=== PATIENT | female | born 1950 | race Caucasian/White ===

== ENCOUNTER 2017-02-03 18:40 | Inpatient (IN) | payer OTHER ==
[~2017-02-03] VITALS: Ht 165.1 cm; Wt 49.4 kg
[~2017-02-03 18:40] MED LIST: ADV250/50 INH; LEVAQUIN500 MG PO; LISINOPRIL10 MG PO; MEDDP PO; MONTELUKAST SOD10 M1 PO; PROAIR HFA0.09 MG/A1 INH
--- NOTE | 2017-02-03 20:01 | NUR ---
PATIENT SEEN WITH COMPLAINT OF CHRONIC SOB, SINCE WINTER STARTED, WORSE LAST MONTH. HISTORY OF ASTHMA. PATIENT WENT TO URGENT CARE AND WAS SENT HERE.
[2017-02-03 20:30] LABS: BASOPHIL % 0.4 % (0-2)
[2017-02-03 20:32] LABS: PLATELET COUNT 401 x10^3mcL (130-400)
[2017-02-03 20:40] LABS: CALCIUM 9.5 mg/dL (8.5-10.1); CARBON DIOXIDE 26.3 mmol/L (21-32); CHLORIDE SERUM 98 mmol/L (98-107); CREATININE SERUM 0.6 mg/dL (0.6-1.0); GFR1 > 60 mL/min; GLUCOSE SERUM 138 mg/dL (74-106); POTASSIUM SERUM 3.6 mmol/L (3.5-5.1); SODIUM SERUM 135 mmol/L (136-145)
[2017-02-03 20:44] LABS: ALBUMIN 3.9 g/dL (3.4-5.0); ALKALINE PHOSPHATASE 84 U/L (46-116); ALT/SGPT 20 U/L (14-59); AST/SGOT 16 U/L (15-37); BILIRUBIN TOTAL 0.5 mg/dL (0.20-1.00); TOTAL PROTEIN, SERUM 7.4 g/dL (6.4-8.2)
--- NOTE | 2017-02-03 23:58 | NUR ---
REPORT WAS GIVEN TO PAULIE. PATIENT TRANSPORTED TO ROOM 253B.
[2017-02-04] VITALS (7 sets, daily range): BP systolic 90–151; BP diastolic 49–90
[2017-02-04 00:11] LABS: CHOLESTEROL/HDL RATIO 3.2
[2017-02-04 00:15] LABS: FREE T4 1.33 ng/dL (0.76-1.46); FREE THYROXINE INDEX 3.9 ug/dL (1.4-4.5); T4(THYROXINE) 10.6 ug/dL (4.7-13.3)
[2017-02-04 00:22] LABS: UA SPECIFIC GRAVITY 1.025 (1.005-1.035); microscopic required? YES; urine erythrocyte TRACE (NEGATIVE)
--- NOTE | 2017-02-04 01:31 | NUR ---
RECEIVED PT FROM ED VIA [facility]. ORIENTED PT TO ROOM AND SURROUNDINGS. IV NOTED TO RIGHT HAND, PATENT AND INTACT. TELE 40 PLACED ON PT READING STA. INSTRUCTED PT ON THE USE OF CALL LIGHT FOR ASSISTANCE. ENDORSED PT TO PRIMARY NURSE PAULIE
--- NOTE | 2017-02-04 01:35 | NUR ---
RECEIVED PT FROM BONIFACIOU RN. PT A/OX4. DENIES CHEST PAIN/PRESSURE. DENIES SOB ON 2LNC. O2SAT 94%. IV PATENT AND INFUSING MAG-RIDER WITH NO S/S OF INFILTRATION. PT ORIENTED TO ROOM AND SURROUNDINGS. CALL LIGHT WITHIN REACH, BED IN LOW POSITION. WILL CONTINUE TO MONITOR.
--- NOTE | 2017-02-04 05:28 | NUR ---
O2 SAT 82%. PT REFUSING O2. RT AT BEDSIDE FOR BREATHING TREATMENT. DR MOLINA NOTIFIED, REPORTED TO BEDSIDE FOR ASSESSMENT. WILL CONTINUE TO MONITOR.
[2017-02-04 06:37] LABS: BASOPHIL % 0.4 % (0-2); PLATELET COUNT 388 x10^3mcL (130-400); RED CELL DISTRIBUTION WIDTH 14.1 % (11.5-14.5)
[2017-02-04 06:55] LABS: CALCIUM 9.7 mg/dL (8.5-10.1); CARBON DIOXIDE 26.3 mmol/L (21-32); CHLORIDE SERUM 99 mmol/L (98-107); CREATININE SERUM 0.6 mg/dL (0.6-1.0); GFR1 > 60 mL/min; GLUCOSE SERUM 144 mg/dL (74-106); MAGNESIUM 2.5 mg/dL (1.8-2.4); PHOSPHOROUS 4.2 mg/dL (2.5-4.9); POTASSIUM SERUM 4.5 mmol/L (3.5-5.1); SODIUM SERUM 137 mmol/L (136-145)
--- NOTE | 2017-02-04 07:32 | NUR ---
RECEIVED PT LAYING IN BED. NO APPARENT SIGNS OF DISTRESS. INTRODUCED SELF. IV SITE PATENT AND INFUSING WELL. INFORMATION BOARD UPDATED. PT PLEASANT WHEN ENGAGED. CALL LIGHT WITHIN REACH. ENCOURAGED TO CALL FOR ASSISTANCE WHEN NEEDED. WILL CONTINUE TO MONITOR
--- NOTE | 2017-02-04 11:58 | NUR ---
PT SITTING AT SIDE OF BED. DENIES PAIN AT THIS TIME. NO APPARENT SIGNS OF ACUTE DISTRESS NOTED. CALL LIGHT WITHIN REACH. ENCOURAGED TO CALL FOR ASSISTANCE WHEN NEEDED. ANASTASIIA CONTINUE TO MONITOR
--- NOTE | 2017-02-04 12:00 | NUR ---
PT STATES THAT SHE DOES NOT WANT THE IV HOOKED UP AND RUNNING. STATES SHE PREFERS TO DRINK WATER. SHE IS CURRENTLY SALINE LOCKED. WILL INFORM DOCTOR
--- NOTE | 2017-02-04 15:47 | NUR ---
PT IS CURRENTLY SITTING AT THE EDGE HER BED CALM AND QUIETLY, BUT APPEARS TO BE RESPONDING TO UNSEEN STIMULI, WHISPERING UNDERNEATH HER BREATH STARING OFF INTO SPACE. NO APPARENT SIGNS OF ACUTE DISTRESS NOTED. IV LINE REMOVED AND IS SALINE LOCKED UPON PTS REQUEST. STATES THAT SHE USES THE RESTROOM AND DOESNT LIEK TAKING THE POLE WITH HER. CALL LIGHT WITHIN REACH. WILL CONTINUE TO MONITOR
--- NOTE | 2017-02-04 16:01 | NUR ---
Initial Nutrition Assessment Dx: Dyspnea 2/2 Acute asthma vs. COPD exacerbation PMHx: Asthma, Chronic Bronchitis, COPD, Paranoid schizophrenia, Medical Non-compliance PSHx: None Labs: BG 144H, Alb 3.9, LDL 122H, Mg 2.5H, A1C 6.2 Meds: oscal w/ vitamin D, colace, NS, zofran, morphine Current Diet Order: Cardiac (02/04) PO Intakes: 100% (02/04) Ht: 165.1cm,65". Wt: 109lbs, 49.4kg. BMI: 18.1 kg/m2 (Underweight-At risk for malnutrition) IBW: 125lb,56.8 kg. %IBW: 87% (Moderate Deficit). UBW: 113lbs x 2 weeks ago Age: 66 Y/O F Food Allergies: NKFA Skin: intact. Jose:19 Edema: None noted GI:bowel sounds active, abd soft and flat . Last BM:1 formed (02/03) Pt admitted w/Dyspnea 2/2 Acute asthma vs. COPD exacerbation, seen at bedside w/ no family present, pt reports consuming 100% d/t feeling hungry, denies GI issues, states loosing 4 lbs in the past 2 weeks d/t not eating very well at home, was feeling sick and only able to eat 1-2 meals per day, denies education on COPD MNT and requested education at bedside, the RD reviewed w/ pt on COPD MNT and tips to prevent wt loss at bedside, educational handout and nutrition health kit given w/ Ensure coupons, the pt was highly receptive and engaged. Problem with: N: None. V: None. D: none. C: None. Problem with: Chewing: None. Swallowing: None. Current Appetite: Good Recent Weight Change: 4lbs. % Weight Change: 3.5 (Significant) Vitamin/Supplement Use: none Diet at Home: for the past 2 weeks the pt only consumed 1-2 meals per day d/t feeling sick Physical Activity: none Education: none Estimated Nutritional Needs Based on IBW 125 lb, 56.8kg Energy: 1053-3558 kcal/day (30-35 kcal/kg for Geriatric Repletion, COPD) Protein: 57-68 g/day (1-1.2 g/kg for Geriatric Repletion, COPD) Fluid: 8866-2968 ml/day (30-35 ml/kg for Geriatric Repletion, COPD) or per MD Nutrition Diagnosis 1. Underweight related to increased protein and energy needs 2/2 COPD as evidenced by pt w/ BMI:18.1, %IBW: 87, 4lbs wt loss in 2 weeks, % Weight Change: 3.5, and poor PO intake PATHOLOGY TECH Intervention 1. Liberalize diet to Regular w/ Boost Plus daily (360kcals, 14g protein). Make food preferences known. 2. Theragran daily 3. Daily weights to assess trends Monitor/Evaluate Goal: PO intakes to meet at least 75% of estimated needs Monitor: PO intakes/tolerance, labs, skin integrity, GI function, wt F/U in 7 days as LOW risk (02/11)
--- NOTE | 2017-02-04 16:13 | NUR ---
1. Liberalize diet to Regular w/ Boost Plus daily (360kcals, 14g protein). Make food preferences known. 2. Theragran daily 3. Daily weights to assess trends
--- NOTE | 2017-02-04 17:47 | NUR ---
REINSERTED NEW IV ACCESS ON THE LEFT HAND 22G. PREVIOUS ACCESS REMOVED. PT TOLERATED WELL. INFUSING AT 60ML/HR NS. CALL LIGHT WITHIN REACH WILL CONTINUE TO MONITOR
--- NOTE | 2017-02-04 19:17 | NUR ---
RECEIVED PT FROM PREVIOUS SHIFT. PT A/OX4. DENIES SOB ON RA. DENIES CHEST PAIN/PRESSURE. RESPONDING TO INTERNAL STIMULI. AT BEDSIDE VISITING. IV PATENT. CALL LIGHT WITHIN REACH, BED IN LOW POSITION. WILL CONTINUE TO MONITOR.
--- NOTE | 2017-02-04 21:32 | NUR ---
BP 90/46, MAP 60. DR MOLINA AWARE. 1L BOLUS ORDER RECEIVED. WILL CARRY OUT ALL ORDERS AT THIS TIME AND CONTINUE TO MONITOR.
--- NOTE | 2017-02-04 23:15 | NUR ---
BP AFTER BOLUS 98/60. DR MOLINA MADE AWARE. WILL CONTINUE TO MONITOR.
--- NOTE | 2017-02-05 02:01 | NUR ---
PT RESTING AT THIS TIME IN NO ACUTE DISTRESS. RR EVEN AND UNLABORED. IV PATENT AND INFUSING WELL WITH NO S/S OF INFILTRATION. CALL LIGHT WITHIN REACH, BED IN LOW POSITION. WILL CONTINUE TO MONITOR.
[2017-02-05 05:34] VITALS: BP 82/48
[2017-02-05 06:24] LABS: CALCIUM 8.9 mg/dL (8.5-10.1); CARBON DIOXIDE 27.6 mmol/L (21-32); CHLORIDE SERUM 102 mmol/L (98-107); CREATININE SERUM 0.6 mg/dL (0.6-1.0); GFR1 > 60 mL/min; GLUCOSE SERUM 114 mg/dL (74-106); MAGNESIUM 2.2 mg/dL (1.8-2.4); POTASSIUM SERUM 4.5 mmol/L (3.5-5.1); SODIUM SERUM 135 mmol/L (136-145)
[2017-02-05 06:27] LABS: PLATELET COUNT 330 x10^3mcL (130-400); RED CELL DISTRIBUTION WIDTH 14.2 % (11.5-14.5)
[2017-02-05 06:32] LABS: BASOPHIL % 0 % (0-2)
--- NOTE | 2017-02-05 06:41 | NUR ---
BP AFTER BOLUS 88/48, MAP 60. DR MOLINA MADE AWARE. REPORTED TO BEDSIDE FOR ASSESSMENT. NO FURTHER ORDERS AT THIS TIME. WILL ENDORSE TO ONCOMING SHIFT
[2017-02-05 10:00] VITALS: BP 102/54
--- NOTE | 2017-02-05 10:25 | NUR ---
AT 0730 - RECEIVED PATIENT FROM NIGHT NURSE. PATIENT AWAKE, ALERT AND ORIENTED. RESPIRATIONS REGULAR. NO SOB NOTED. MONITOR SHOWING SINUS RHYTHM; RATE 89. IV INFUSING NS AT 60ML/HR. AT 0820 - SEEN BY DR CLARK DURING MORNING ROUNDS. MEDICAL TEAM DOCTORS, YESENIA POWELL AND MYSELF PRIMARY NURSE ALSO PRESENT. DR CLARK SPOKE WITH PATIENT ABOUT PLAN OF CARE. PLAN TO DC HOME TODAY. STRESSED IMPORTANCE OF FOLLOW-UP WITH PCP UPON DISCHARGE. AT 0940 - PATIENT AMBULATING IN ROOM. ENCOURAGED USE OF ISNETIVE SPIROMETER.
[2017-02-05 10:35] LABS: T3 TOTAL 1.01 ng/mL
--- NOTE | 2017-02-05 12:16 | NUR ---
PATIENT SITTING OUT OF BED IN CHAIR. DAUGHTER SITTING NEXT TO HER.
--- NOTE | 2017-02-05 12:18 | NUR ---
PATIENT SITTING OUT OF BED IN CHAIR. HAS BEEN AMBULATING IN ROOM. NO SOB NOTED.
--- NOTE | 2017-02-05 13:31 | NUR ---
IN ROOM. AWAITING DISCHARGE ORDERS.
[2017-02-05 14:02] VITALS: BP 107/51
[2017-02-05] MEDS ORDERED: LEVAQUIN750 MG PO (14:45)
[2017-02-05] MEDS ORDERED: LAC PO (14:46)
[2017-02-05] MEDS ORDERED: MOT400 PO (14:48)
[2017-02-05 14:53] VITALS: BP 107/51
--- NOTE | 2017-02-05 15:43 | NUR ---
AT 1510 - RECEIVED DISCHARGE ORDERS. IV INFUSION DISCONTINUED. TAKEN OFF CARDIAC MONITORING. AT 1530 - PRINTED DISCHARGE INSTRUCTIONS GIVEN AND EXPLAINED TO PATIENT AND . PRESCRIPTION PROVIDED. IV CATHETER REMOVED INTACT. AT 1535 - DISCHARGED HOME WITH . ESCORTED AMBULATORY TO DISCHARGE OFFICE BY NURSE.
== END 2017-02-05 15:36 | disposition home or self-care (01) | DRG 191 ==
LOC: ED 18:40 → DU 23:10
PROVIDERS: Emergency Medicine; ADMIT Family Medicine
DX: J44.1 Chronic obstructive pulmonary disease with (acute) exacerbation (principal); F20.0 Paranoid schizophrenia; E87.1 Hypo-osmolality and hyponatremia; Z68.42 Body mass index [BMI] 45.0-49.9, adult; M94.0 Chondrocostal junction syndrome [Tietze]; J45.909 Unspecified asthma, uncomplicated; I16.0 Hypertensive urgency; D47.3 Essential (hemorrhagic) thrombocythemia; Z79.82 Long term (current) use of aspirin; Z79.52 Long term (current) use of systemic steroids; Z79.891 Long term (current) use of opiate analgesic; Z91.19 Patient's noncompliance with other medical treatment and regimen
CPT/HCPCS: 36600; 83880; 84439; 94150; J1956; J2920; J2930; J3475; J7030; J7512; J7613; J7620; J7633; J7644; Q0092

== ENCOUNTER 2019-01-12 10:08 | Inpatient (IN) | payer OTHER ==
[~2019-01-12] VITALS: Ht 162.6 cm; Wt 61.7 kg
[~2019-01-12 10:08] MED LIST changes: +LAC PO; +LEVAQUIN750 MG PO; +MOT400 PO
[2019-01-12 10:20] VITALS: Ht 162.6 cm; Wt 61.7 kg
[2019-01-12 11:05] LABS: BASOPHIL % 1.1 % (0-2); RED CELL DISTRIBUTION WIDTH 13.3 % (11.5-14.5)
[2019-01-12 11:06] LABS: CALCIUM 10.4 mg/dL (8.5-10.1); CARBON DIOXIDE 28.5 mmol/L (21-32); CHLORIDE SERUM 94 mmol/L (98-107); CREATININE SERUM 0.9 mg/dL (0.6-1.0); GFR1 > 60 mL/min; GLUCOSE SERUM 104 mg/dL (74-106); POTASSIUM SERUM 4.4 mmol/L (3.5-5.1); SODIUM SERUM 136 mmol/L (136-145)
[2019-01-12 11:09] LABS: PLATELET COUNT 440 x10^3mcL (130-400)
[2019-01-12 11:10] LABS: ALBUMIN 4.6 g/dL (3.4-5.0); ALKALINE PHOSPHATASE 87 U/L (46-116); ALT/SGPT 22 U/L (14-59); AST/SGOT 21 U/L (15-37); TOTAL PROTEIN, SERUM 9.4 g/dL (6.4-8.2)
[2019-01-12 12:55] LABS: MAGNESIUM 2.2 mg/dL (1.8-2.4); PHOSPHOROUS 5.1 mg/dL (2.5-4.9)
[2019-01-12 13:24] VITALS: BP 128/76
[2019-01-12 14:05] VITALS: BP 128/76
[2019-01-12 21:36] VITALS: BP 160/76
[2019-01-12 22:24] VITALS: BP 106/61
[2019-01-13 02:06] LABS: UA SPECIFIC GRAVITY 1.015 (1.005-1.035); microscopic required? YES; urine erythrocyte 1+ (NEGATIVE)
[2019-01-13 02:12] LABS: AMPHETAMINE QUAL UR NONE DETECTED (See below)
[2019-01-13 05:35] VITALS: BP 122/66
[2019-01-13 06:32] LABS: PLATELET COUNT 312 x10^3mcL (130-400); RED CELL DISTRIBUTION WIDTH 13.8 % (11.5-14.5)
[2019-01-13 06:43] LABS: CALCIUM 8.9 mg/dL (8.5-10.1); CARBON DIOXIDE 27.8 mmol/L (21-32); CHLORIDE SERUM 106 mmol/L (98-107); CREATININE SERUM 0.6 mg/dL (0.6-1.0); GFR1 > 60 mL/min; GLUCOSE SERUM 114 mg/dL (74-106); MAGNESIUM 2.1 mg/dL (1.8-2.4); PHOSPHOROUS 2.3 mg/dL (2.5-4.9); POTASSIUM SERUM 3.7 mmol/L (3.5-5.1); SODIUM SERUM 140 mmol/L (136-145)
[2019-01-13 07:26] LABS: BASOPHIL % 0 % (0-2)
[2019-01-13 09:37] VITALS: BP 130/57
[2019-01-13 13:45] VITALS: BP 120/62
[2019-01-13 17:00] VITALS: BP 110/47
[2019-01-13 20:00] VITALS: BP 139/67
[2019-01-14 06:19] LABS: CALCIUM 8.6 mg/dL (8.5-10.1); CARBON DIOXIDE 24.8 mmol/L (21-32); CHLORIDE SERUM 108 mmol/L (98-107); CREATININE SERUM 0.6 mg/dL (0.6-1.0); GFR1 > 60 mL/min; GLUCOSE SERUM 124 mg/dL (74-106); MAGNESIUM 2.2 mg/dL (1.8-2.4); PHOSPHOROUS 2.8 mg/dL (2.5-4.9); POTASSIUM SERUM 4.4 mmol/L (3.5-5.1); SODIUM SERUM 140 mmol/L (136-145)
[2019-01-14 06:23] VITALS: BP 111/73; BP 120/56
[2019-01-14 06:26] LABS: PLATELET COUNT 313 x10^3mcL (130-400); RED CELL DISTRIBUTION WIDTH 14.1 % (11.5-14.5)
[2019-01-14 08:16] LABS: BASOPHIL % 0 % (0-2)
[2019-01-14 17:53] VITALS: BP 153/74
[2019-01-14 20:39] VITALS: BP 157/72
[2019-01-15 06:36] VITALS: BP 130/63
[2019-01-15 07:30] LABS: CALCIUM 8.6 mg/dL (8.5-10.1); CARBON DIOXIDE 26.9 mmol/L (21-32); CHLORIDE SERUM 107 mmol/L (98-107); CREATININE SERUM 0.6 mg/dL (0.6-1.0); GFR1 > 60 mL/min; GLUCOSE SERUM 107 mg/dL (74-106); PHOSPHOROUS 2.5 mg/dL (2.5-4.9); POTASSIUM SERUM 4.5 mmol/L (3.5-5.1); SODIUM SERUM 140 mmol/L (136-145)
[2019-01-15 07:42] LABS: BASOPHIL % 0.1 % (0-2); PLATELET COUNT 299 x10^3mcL (130-400); RED CELL DISTRIBUTION WIDTH 13.7 % (11.5-14.5)
[2019-01-15 09:57] VITALS: BP 144/63
[2019-01-15 12:07] VITALS: BP 144/63
[2019-01-15] MEDS ORDERED: PRE20 PO (13:28)
[2019-01-15] MEDS ORDERED: MUCINEX600 MG PO (13:28)
== END 2019-01-15 14:37 | disposition home or self-care (01) | DRG 189 ==
LOC: ED 10:08 → DU 11:26 → MU 01-14 12:06
PROVIDERS: Emergency Medicine; ADMIT Internal Medicine
DX: J96.01 Acute respiratory failure with hypoxia (principal); N17.0 Acute kidney failure with tubular necrosis; J45.901 Unspecified asthma with (acute) exacerbation; F20.0 Paranoid schizophrenia; R04.2 Hemoptysis; D72.829 Elevated white blood cell count, unspecified; D47.3 Essential (hemorrhagic) thrombocythemia; E83.52 Hypercalcemia; E78.5 Hyperlipidemia, unspecified; E83.39 Other disorders of phosphorus metabolism; Z91.14 Patient's other noncompliance with medication regimen; Z77.22 Contact with and (suspected) exposure to environmental tobacco smoke (acute) (chronic); Z68.23 Body mass index [BMI] 23.0-23.9, adult; Z79.1 Long term (current) use of non-steroidal anti-inflammatories (NSAID)
CPT/HCPCS: 82962; 83880; 85378; 94150; J2920; J2930; J7030; J7512; J7613; J7620; J7626; J7644

== ENCOUNTER 2019-04-03 10:42 | Inpatient (IN) | payer OTHER ==
[~2019-04-03] VITALS: Ht 162.6 cm; Wt 54.4 kg
[~2019-04-03 10:42] MED LIST changes: +MUCINEX600 MG PO; +PRE20 PO
--- NOTE | 2019-04-03 11:16 | NUR ---
RT AT BEDSIDE
--- NOTE | 2019-04-03 11:21 | NUR ---
MSE COMPLETED BY DR LAWSON
--- NOTE | 2019-04-03 11:21 | NUR ---
PT AWAKE AND ALERT. PT PRESENTS TO ED WITH C/O SOB AND C/P X5 WEEKS. PT STATES THAT SHE IS BAPTISM AND DID NOT SEEK TREATMENT EARLIER BECAUSE SHE CAN SUFFER BUT 5 WEEKS IS ENOUGH. PT IS VISIBLY TACHYPNEIC AND DIAPHORETIC. PT IS SHOWING STA ON THE CM. PT PLACED ON 02. PT ON FULL CM. WHEEZES NOTED TO BILATERAL AUSCULATED IN BILATERAL LUNGS. RT AT BEDSIDE FOR BREATHING TREATMENT
--- NOTE | 2019-04-03 11:24 | NUR ---
PT IS POINTING TO THE MORRISSEY AND TALKING AND NODDING. ASKED PT WHO SHE IS TALKING PT STATES "DON'T BE AFRAID, STAY YOUNG."
--- NOTE | 2019-04-03 11:30 | NUR ---
PORTABLE XRAY AT BEDSIDE FOR CHEST XRAY
--- NOTE | 2019-04-03 11:37 | NUR ---
PT MEDICATED PER DOCTORS ORDERS. EMT AT BEDSIDE FOR EKG
[2019-04-03 11:52] LABS: CARBON DIOXIDE 27.3 mmol/L (21-32); CHLORIDE SERUM 103 mmol/L (98-107); CREATININE SERUM 0.8 mg/dL (0.6-1.0); GFR1 > 60 mL/min; GLUCOSE SERUM 120 mg/dL (74-106); POTASSIUM SERUM 4.5 mmol/L (3.5-5.1); SODIUM SERUM 140 mmol/L (136-145)
[2019-04-03 11:59] LABS: ALBUMIN 3.9 g/dL (3.4-5.0); ALKALINE PHOSPHATASE 67 U/L (46-116); ALT/SGPT 32 U/L (14-59); AST/SGOT 20 U/L (15-37); BILIRUBIN TOTAL 0.5 mg/dL (0.20-1.00); TOTAL PROTEIN, SERUM 7.6 g/dL (6.4-8.2)
[2019-04-03 12:12] LABS: PLATELET COUNT 413 x10^3mcL (130-400)
[2019-04-03 12:13] LABS: ATYPICAL LYMPH 5 %; PLATELET MORPHOLOGY PLATELETS NORMAL; SEGMENTED NEUTROPHILS 84 % (37-75); rbc morphology (normal/abnorm) NORMAL (NORMAL)
--- NOTE | 2019-04-03 13:14 | NUR ---
RT AT BEDSIDE FOR BREATHING TREATMENT
--- NOTE | 2019-04-03 14:22 | NUR ---
RECEIVED PT FROM ED VIA [facility], CAME IN DUE TO SOB X2 DAYS. AAOX4. DENIES HEADACHE/DIZZINESS. NO SOB NOTED AT THIS TIME. LUNG SOUNDS CTA. O2 SAT=93% RA. DENIES CHEST PAIN/PRESSURE, CN=044. DENIES ABDOMINAL DISCOMFORT. BOWEL SOUNDS ACTIVE. IV SITE ON THE LAC IS PATENT AND INTACT. PT IS CALM AND COOPERATIVE TO CARE. SIDE RAILS UPX2. CALL LIGHT ON REACH. ENDORSED TO PRIMARY NURSE SHREYAIN FOR CONTINUITY OF CARE
[2019-04-03 14:29] LABS: PHOSPHOROUS 3.8 mg/dL (2.5-4.9)
[2019-04-03 14:31] LABS: CHOLESTEROL/HDL RATIO 3.5
--- NOTE | 2019-04-03 14:42 | NUR ---
SEEN AWAKE, ALERT, ORIENTED X4. NO RESP DISTRESS NOTED ON ROOM AIR. DENIES PAIN. STATED JUST HAD 2 BREATHING TX IN ER AND FEEL MUCH BETTER. REGULAR DIET PROVIDED. DENIES NAUSEA. ORIENTED TO ENVIRONMENT. CALL LIGHT PLACED WITHIN EASY REACH. SIDERAILS UP X2.
[2019-04-03 14:44] VITALS: BP 123/60
[2019-04-03 14:50] VITALS: Ht 162.6 cm; Wt 54.4 kg
--- NOTE | 2019-04-03 15:39 | NUR ---
TELE#[address] KS=010. DENIES PAIN. DOCTOR GARRICK AT BEDSIDE.
[2019-04-03 16:32] VITALS: BP 119/55
[2019-04-03 16:54] VITALS: BP 119/55
--- NOTE | 2019-04-03 19:25 | NUR ---
AWAKE AND ALERT,ORIENTED TO NAME, PLACE, TIME AND SITUATION. SPEECH CLEAR AND APPROPRIATE. WHEEZES HEARD ON AUSCULTATION. ON ROOM AIR. ABLE TO COMPLETE SENTENCES. SINUS TACHYCARDIC ON TELE. DENIES HAVING PAIN. ABOUT TO RECEIVE BREATHING TREATMENT FROM RESP THERAPIST. SALINE LOCK TO LEFT AC.
[2019-04-03 20:04] VITALS: BP 116/57
--- NOTE | 2019-04-03 21:29 | NUR ---
ON BED, BREATHING EVEN AND UNLABORED. SALINE LOCK TO LEFT AC FLUSHED WELL. DUE SOLUMEDROL ADMINISTERED IVP. HOB ELEVATED 30 DEG. CALL LIGHT WITHIN EASY REACH.
--- NOTE | 2019-04-04 01:11 | NUR ---
SMALL AMOUNT OF LIGHT SEROSANGUINOUS FLUID NOTED IN ADELSO DRAIN.
--- NOTE | 2019-04-04 01:19 | NUR ---
AWAKE AND ALERT, HOB ELEVATED 20 DEG. BREATHING EVEN AND UNLABORED ON ROOM AIR. PT STATED SHE IS COMFORTABLE. CALL LIGHT WITHIN EASY REACH.
[2019-04-04 01:20] LABS: microscopic required? NO
[2019-04-04 01:32] LABS: urine erythrocyte NEGATIVE (NEGATIVE)
[2019-04-04 05:42] VITALS: BP 111/65
--- NOTE | 2019-04-04 06:28 | NUR ---
EARILIER CALLED ASKING FOR BREATHING TREATMENT. WHEEZING NOTED ON AUSCULTATION. ABLE TO COMPLETE SENTENCES. ON ROOM AIR. CALLED RESP THERAPIST FOR BREATHING TREATMENT. SALINE LOCK FREE FROM ERYTHEMA OR SWELLING.
[2019-04-04 06:54] LABS: CALCIUM 10.6 mg/dL (8.5-10.1); CARBON DIOXIDE 25.2 mmol/L (21-32); CHLORIDE SERUM 110 mmol/L (98-107); CREATININE SERUM 0.6 mg/dL (0.6-1.0); GFR1 > 60 mL/min; GLUCOSE SERUM 118 mg/dL (74-106); MAGNESIUM 2.4 mg/dL (1.8-2.4); PHOSPHOROUS 3.1 mg/dL (2.5-4.9); POTASSIUM SERUM 4.7 mmol/L (3.5-5.1); SODIUM SERUM 145 mmol/L (136-145)
--- NOTE | 2019-04-04 07:08 | NUR ---
AWAKE AND ALERT, STATED BREATHING WELL. ON ROOM AIR. ABLE TO COMPLETE SENTENCES WITHOUT DIFFICULTY. CALL LIGHT WITHIN EASY REACH. ENDORSED TO NURSE MINGO
--- NOTE | 2019-04-04 07:30 | NUR ---
SEEN IN BED AAOX4. NO RESP DISTRESS NOTED. BRATHING E/U ON ROOM AIR. WHEEZING LUNG SOUND TO AUSCULTATION. RT PROTOCAL. ON REGULAR DIET. S/L TO LAC INTACT AND PATENT. PLAN OF CARE DISCUSSED. CALL LIGHT PLACED WITHIN EASY REACH, SIDERAILS UP X2.
[2019-04-04 07:40] VITALS: BP 127/63
[2019-04-04 08:34] LABS: BASOPHIL % 0.1 % (0-2); PLATELET COUNT 356 x10^3mcL (130-400); RED CELL DISTRIBUTION WIDTH 14.2 % (11.5-14.5)
--- NOTE | 2019-04-04 11:30 | NUR ---
SEEN WATCHING TV, NO SOB NOTED ON ROOM AIR. STATED FEELING OK. WILL CONTINUE TO MONITOR.
[2019-04-04 13:42] VITALS: BP 108/49
--- NOTE | 2019-04-04 14:15 | NUR ---
STATED JUST HAD BREATHING TX. SOLUMEDROL 40MG IVP GIVEN. NO ANY DISTRESS NOTED. IV ACCESS FLUSEHD PATENT.
[2019-04-04 16:28] VITALS: BP 109/70
--- NOTE | 2019-04-04 18:19 | NUR ---
REMAINS STABLE CONDITION THROUGHOUT SHIFT. NO SOB, BREATHING E/U ON ROOM AIR. RT GIVEN TREATMENT PER PROTOCAL. VSS. DUE MEDS GIVEN. S/L TO LAC FLUSHED PATENT.
--- NOTE | 2019-04-04 19:21 | NUR ---
AWAKE AND ALERT, ORIENTED TO NAME, PLACE, TIME AND SITUATION. SPEECH CLEAR AND APPROPRIATE. HOB ELEVATED 30 DEG. BREATHING EVEN AND UNLABORED ON ROOM AIR. LUNG SOUNDS CLEAR, NO WHEEZING HEARD ON AUSCULTATION. SINUS RHYTHM ON TELE. SALINE LOCK TO LEFT AC.
[2019-04-04 20:03] VITALS: BP 138/68
--- NOTE | 2019-04-04 20:05 | NUR ---
PT CALLED, STATED SHE WAS SHORT OF BREATH. WHEEZING HEARD ON AUSCULTATION. O2 SAT 91% ON ROOM AIR, RR 20/MIN. CALLED RESP THERAPIST FOR BREATHING TREATMENT, RT MANUEL IN ROOM.
--- NOTE | 2019-04-04 20:20 | NUR ---
PT STATED BREATHING BETTER AFTER BREATHING TREATMENT. BREATHING EVEN AND UNLABORED ON ROOM AIR.
--- NOTE | 2019-04-05 00:32 | NUR ---
EYES CLOSED, BREATHING EVEN AND UNLABORED, RR16/MIN. HOB ELEVATED 30 DEG. CALL LIGHT WITHIN EASY REACH.
--- NOTE | 2019-04-05 06:06 | NUR ---
EYES CLOSED, EASILY AWAKENED. STATED SHE IS COMFORTABLE, STATED HAVING NO SHORTNESS OF BREATH AT THIS TIME. ON ROOM AIR. CALL LIGHT WITHIN EASY REACH.
[2019-04-05 06:24] VITALS: BP 110/68
[2019-04-05 07:03] LABS: CALCIUM 9.6 mg/dL (8.5-10.1); CARBON DIOXIDE 22.5 mmol/L (21-32); CHLORIDE SERUM 110 mmol/L (98-107); CREATININE SERUM 0.6 mg/dL (0.6-1.0); GFR1 > 60 mL/min; GLUCOSE SERUM 119 mg/dL (74-106); MAGNESIUM 2.2 mg/dL (1.8-2.4); PHOSPHOROUS 3.1 mg/dL (2.5-4.9); POTASSIUM SERUM 5.2 mmol/L (3.5-5.1); SODIUM SERUM 145 mmol/L (136-145)
[2019-04-05 07:08] LABS: BASOPHIL % 0.1 % (0-2); PLATELET COUNT 347 x10^3mcL (130-400)
[2019-04-05 07:10] LABS: RED CELL DISTRIBUTION WIDTH 14.8 % (11.5-14.5)
--- NOTE | 2019-04-05 07:28 | NUR ---
RECEIVED PT'S REPORT FROM LEAVING NURSE. PT REST ON BED A/O X4, BREATHING ON RA, EVEN, UNLABORED. PT DENIED PAIN AND SOB AT THIS TIME. IV SITE SALINE LOCK.
[2019-04-05 09:11] VITALS: BP 128/67
--- NOTE | 2019-04-05 09:48 | NUR ---
PT REST ON BED, BREATHING ON RA, NO COMPLAIN OF SOB. PT REPORTED SHE HAD DIARRHEA THIS MORNING.
--- NOTE | 2019-04-05 10:18 | NUR ---
MADE DR. LIVE AWARE PT'S K 5.2, AND PT REPORTED SHE HAD DIARRHEA X1 THIS MORNING.
[2019-04-05] MEDS ORDERED: PREDNISONE20 MG PO (11:44)
[2019-04-05 13:12] VITALS: BP 146/71
--- NOTE | 2019-04-05 14:59 | NUR ---
PT IS READY TO DISCHRGE. DISCHARGE PRESCRIPTION AND INSTRUCTION GIVEN. PT'S WILL TAKE PT HOME. PT BREATHING ON RA, NO DISTRESSED NOTED. IV, ID, AND TELE MONITOR REMOVED. WALKED PT OUT OF UNIT.
== END 2019-04-05 15:41 | disposition home or self-care (01) | DRG 189 ==
LOC: ED 10:42 → DU 13:35 → MU 13:35 → DU 16:31
PROVIDERS: Emergency Medicine; ADMIT Internal Medicine
DX: J96.01 Acute respiratory failure with hypoxia (principal); J44.1 Chronic obstructive pulmonary disease with (acute) exacerbation; F20.0 Paranoid schizophrenia; E86.0 Dehydration; R73.03 Prediabetes; E78.5 Hyperlipidemia, unspecified; Z68.20 Body mass index [BMI] 20.0-20.9, adult
CPT/HCPCS: 83880; 94150; G0378; J2920; J2930; J3475; J7030; J7613; J7644; Q0092